=== PATIENT | male | born 1990 | race Caucasian/White ===

== ENCOUNTER 2019-07-31 21:01 | Emergency (ER) | payer SELFPAY ==
[~2019-07-31] VITALS: Ht 188 cm; Wt 84.1 kg
[~2019-07-31 21:01] MED LIST: HYDROCODONE-APA1 TAB PO
[2019-07-31 21:13] VITALS: Ht 188 cm; Wt 84.1 kg
[2019-07-31 21:35] LABS: HEMATOCRIT 46.1 % (42.0-54.0); LYMPHOCYTES 14.5 % (15-50); MCH 31.3 pg (26.0-34.0); MCHC 34.7 g/dL (31.0-37.0); MCV 90.2 fL (80.0-100.0); MEAN PLATELET VOLUME 10.2 fL (7.4-10.4); NEUTROPHILS 77.5 % (40-80); PLATELET COUNT 169 10x3/uL (130-400); RBC 5.11 10x6/uL (4.20-6.10); RDW 12.6 % (11.5-14.5); WBC 11.1 10x3/uL (4.8-10.8)
[2019-07-31 21:49] LABS: ALBUMIN 4.3 g/dL (3.4-5.0); ALKALINE PHOSPHATASE 92 U/L (46-116); ALT (SGPT) 17 U/L (10-68); BILIRUBIN - TOTAL 0.91 mg/dL (0.2-1.3); CALC OSMOLALITY 277 mosm/kg (275-300); CALCIUM 8.8 mg/dL (8.5-10.1); CARBON DIOXIDE 31.8 mmol/L (21.0-32.0); CHLORIDE - SERUM 103 mmol/L (98-107); GLUCOSE 126 mg/dL (74-106); POTASSIUM - SERUM 5.1 mmol/L (3.5-5.1); PROTEIN - SERUM 7.5 g/dL (6.4-8.2); SODIUM 138 mmol/L (136-145); UREA NITROGEN 13 mg/dL (7-18); eGFR NON AFRICAN AMERICAN > 90 mL/min (90-120)
[2019-07-31 21:53] LABS: AMYLASE - SERUM 30 U/L (25-115); LIPASE 71 U/L (73-393); TROPONIN-I < 0.017 ng/mL (0.000-0.060)
[2019-07-31] MEDS ORDERED: NYSTATIN15 GM TOPICAL (22:59)
[2019-07-31 23:23] VITALS: BP 134/68
== END 2019-07-31 23:24 | disposition home or self-care (01) ==
LOC: D.ER 21:01
PROVIDERS: Family Medicine
DX: R11.0 Nausea (principal); R51 Headache; R52 Pain, unspecified